=== PATIENT | female | born 1995 | race Two or more races ===

== ENCOUNTER 2017-09-12 07:21 | Inpatient (IN) | payer MEDICAID ==
[~2017-09-12] VITALS: Ht 172.7 cm; Wt 97.7 kg
[2017-09-12 07:30] VITALS: BP 133/90
[2017-09-12] MEDS ORDERED: PREN-3 PO (07:33)
[2017-09-12] MEDS ORDERED: D5%-LACTATED RINGERS 1,000 ML IV SCH (07:50)
[2017-09-12] MEDS ORDERED: OXYTOCIN 30U/ 0.9% NaCL 500ML 500 ML IV PRN ×2 (07:50→08:31)
[2017-09-12] MEDS ORDERED: AMPICILLIN 2 GM in SODIUM CHLORIDE 0.9% 100 ML IVPB STA (07:50)
[2017-09-12] MEDS ORDERED: OXYTOCIN 30U/ 0.9% NaCL 500ML 500 ML IV ONE (07:50)
[2017-09-12] MEDS ORDERED: OXYTOCIN 30U/ 0.9% NaCL 500ML 500 ML ONE ×2 (08:00→18:55)
[2017-09-12] MEDS ORDERED: NEWBORN KIT ONE (08:00)
[2017-09-12] MEDS ORDERED: ONDANSETRON 2MG/ML, 2ML IVPush PRN (08:00)
[2017-09-12] MEDS ORDERED: FENTANYL PF 100 MCG/2ML IV PRN (08:00)
[2017-09-12] MEDS ORDERED: TERBUTALINE 1 MG/ML, 1ML IVPush PRN (08:00)
[2017-09-12] MEDS ORDERED: OXYTOCIN 10 UNITS/ML, 1ML ONE (08:00)
[2017-09-12] MEDS: LACTATED RINGERS 1,000 ML IV SCH ×3 (08:14→16:20)
[2017-09-12 08:17] LABS: BASOPHILS # (AUTO) 0.05 x10^3/uL (0-0.1); BASOPHILS % (AUTO) 1 % (0-1); EOSINOPHILS # (AUTO) 0.02 x10^3/uL (0-0.4); EOSINOPHILS % (AUTO) 0 % (1-7); LYMPHOCYTES # (AUTO) 3.37 x10^3/uL (1-3.4); LYMPHOCYTES % (AUTO) 35 % (22-44); MD NO; MEAN CORPUSCULAR HEMOGLOBIN 29.6 pg (27.0-34.8); MEAN CORPUSCULAR HGB CONC 33.1 g/dL (32.4-35.8); MEAN CORPUSCULAR VOLUME 89.4 fL (80-100); MEAN PLATELET VOLUME 11.7 fL (7.4-10.4); MONOCYTES % (AUTO) 6 % (2-9); NEUTROPHILS % (AUTO) 58 % (42-75); PLATELET COUNT 142 x10^3/uL (130-400); RED BLOOD COUNT 4.11 x10^6/uL (3.82-5.3); RED CELL DISTRIBUTION WIDTH 13.4 % (9.6-15.2)
[2017-09-12] MEDS: AMPICILLIN 1 GM in SODIUM CHLORIDE 0.9% 100 ML IVPB SCH ×2 (12:32→16:26)
[2017-09-12] MEDS ORDERED: FENTANYL PF 100 MCG/2ML ONE ×2 (13:52→16:01)
[2017-09-12] MEDS: FENTANYL PF 100 MCG/2ML IVPush PRN ×2 (13:54→16:03)
[2017-09-12] MEDS ORDERED: MISOPROSTOL 200 MCG TABLET PR PRN (14:00)
[2017-09-12] MEDS ORDERED: FENTANYL/BUPIV./NS/PF 250 ML EPIDCONT SCH (16:20)
[2017-09-12] MEDS ORDERED: BUPIVACAINE/PF 0.25% ONE (16:22)
[2017-09-12] MEDS ORDERED: FENTANYL/BUPIV./NS/PF 250 ML EPIDCONT ONE (16:22)
[2017-09-12] MEDS ORDERED: LACTATED RINGERS 1,000 ML IVBOLUS PRN (16:30)
[2017-09-12] MEDS ORDERED: NALOXONE 0.4 MG/ML, 1ML IVPush PRN (16:30)
[2017-09-12] MEDS ORDERED: EPHEDRINE 50 MG/ML, 1ML IVPush PRN (16:30)
[2017-09-12] MEDS ORDERED: IBUPROFEN 600 MG TABLET ONE (18:05)
[2017-09-12] MEDS: IBUPROFEN 600 MG TABLET PO PRN (18:07)
[2017-09-12] MEDS: OXYTOCIN 30U/ 0.9% NaCL 500ML 500 ML IV SCH ×2 (19:04→23:58)
[2017-09-12 20:10] VITALS: BP 115/75
[2017-09-12] MEDS: OXYcodone/APAP 5/325MG TABLET PO PRN (22:17)
[2017-09-13 00:15] VITALS: BP 118/75
[2017-09-13] MEDS: LACTATED RINGERS 1,000 ML IV SCH ×3 (00:20→16:20)
[2017-09-13 04:40] VITALS: BP 109/68
[2017-09-13 05:02] LABS: BASOPHILS # (AUTO) 0.15 x10^3/uL (0-0.1); BASOPHILS % (AUTO) 2 % (0-1); EOSINOPHILS # (AUTO) 0.03 x10^3/uL (0-0.4); EOSINOPHILS % (AUTO) 0 % (1-7); LYMPHOCYTES # (AUTO) 3.65 x10^3/uL (1-3.4); LYMPHOCYTES % (AUTO) 37 % (22-44); MD NO; MEAN CORPUSCULAR HEMOGLOBIN 30.3 pg (27.0-34.8); MEAN CORPUSCULAR HGB CONC 33.8 g/dL (32.4-35.8); MEAN CORPUSCULAR VOLUME 89.5 fL (80-100); MONOCYTES # (AUTO) 0.65 x10^3/uL (0.2-0.8); MONOCYTES % (AUTO) 7 % (2-9); NEUTROPHILS # (AUTO) 5.38 x10^3/uL (1.8-6.8); NEUTROPHILS % (AUTO) 55 % (42-75); PLATELET COUNT 131 x10^3/uL (130-400); RED BLOOD COUNT 3.57 x10^6/uL (3.82-5.3); RED CELL DISTRIBUTION WIDTH 13.3 % (9.6-15.2)
[2017-09-13] MEDS: PRENATAL VIT/IRON/FA 1 EACH TABLET PO SCH (07:40)
[2017-09-13] MEDS: IBUPROFEN 600 MG TABLET PO PRN ×2 (07:41→20:10)
[2017-09-13] MEDS: DOCUSATE 100 MG CAPSULE PO PRN ×2 (07:41→20:10)
[2017-09-13 08:15] VITALS: BP 115/76
[2017-09-13] MEDS: OXYcodone/APAP 5/325MG TABLET PO PRN ×3 (08:31→20:10)
[2017-09-13] MEDS: OXYTOCIN 30U/ 0.9% NaCL 500ML 500 ML IV SCH ×2 (09:58→19:58)
[2017-09-13 12:36] VITALS: BP 100/68
[2017-09-13 20:05] VITALS: BP 126/83
[2017-09-14] MEDS: LACTATED RINGERS 1,000 ML IV SCH ×2 (00:20→09:25)
[2017-09-14] MEDS ORDERED: IBUP-1222 PO (05:50)
[2017-09-14] MEDS: OXYTOCIN 30U/ 0.9% NaCL 500ML 500 ML IV SCH (07:24)
[2017-09-14 07:40] VITALS: BP 107/72
[2017-09-14] MEDS: PRENATAL VIT/IRON/FA 1 EACH TABLET PO SCH (09:44)
[2017-09-14] MEDS: IBUPROFEN 600 MG TABLET PO PRN (09:44)
[2017-09-14] MEDS: OXYcodone/APAP 5/325MG TABLET PO PRN (09:44)
[2017-09-14] MEDS: DOCUSATE 100 MG CAPSULE PO PRN (09:44)
== END 2017-09-14 15:33 | disposition home or self-care (01) | DRG 775 ==
LOC: LDOP 07:21 → LDIP 07:51 → 2NW 20:07
PROVIDERS: ADMIT Obstetrics & Gynecology; ATTEND Obstetrics & Gynecology
PROC: 10E0XZZ Delivery of Products of Conception, External Approach (ICD-10-PCS; principal; 2017-09-12)
PROC: 3E0R3BZ Introduction of Anesthetic Agent into Spinal Canal, Percutaneous Approach (ICD-10-PCS; 2017-09-12)
PROC: 00HU33Z Insertion of Infusion Device into Spinal Canal, Percutaneous Approach (ICD-10-PCS; 2017-09-12)
PROC: 3E033VJ Introduction of Other Hormone into Peripheral Vein, Percutaneous Approach (ICD-10-PCS; 2017-09-12)
DX: O42.92 Full-term premature rupture of membranes, unspecified as to length of time between rupture and onset of labor (principal); O99.824 Streptococcus B carrier state complicating childbirth; Z37.0 Single live birth; Z3A.39 39 weeks gestation of pregnancy; Z83.3 Family history of diabetes mellitus; Z90.89 Acquired absence of other organs
CPT/HCPCS: 36415; 85025; 86850; 86900; 89060; J0290; J3010; J2590; J7120; Q0114